=== PATIENT | female | born 1995 | race Caucasian/White ===

== ENCOUNTER 2019-03-17 07:16 | Inpatient (IN) | payer BC, OTHER ==
[~2019-03-17] VITALS: Ht 167.7 cm; Wt 69.5 kg
[2019-03-18] VITALS (19 sets, daily range): BP systolic 89–133; BP diastolic 62–85; PULSE 55–114; TEMP 97.6–99
--- NOTE | 2019-03-18 10:15 | NUR ---
Presents to labor and delivery for scheduled section. Assessment done, questions offered and answered. [facility]co anesthesia here, visits with patient. iv start left hand, fluids of lactated ringers started as ordered.
[2019-03-18] MEDS ORDERED: PRENATAL (10:38)
[2019-03-18 11:05] LABS: BASO % 0.3 % (0.0-2.0); EOS # 0.1 (0.0-0.7); EOS % 0.7 % (0-4.0); GRAN # 6.3 (1.4-6.5); GRAN % 72.2 % (42.2-75.2); HEMATOCRIT 34.3 % (37.0-47.0); LYMPH # 1.6 (1.2-3.4); LYMPH % 18.2 % (20.0-51.0); MEAN CELL VOLUME 90 fl (80.0-100.0); MEAN CORPUSCULAR HEMOGLOBIN 31 pg (27.0-31.0); MEAN CORPUSCULAR HGB CONC 35 g/dl (33.0-37.0); MEAN PLATELET VOLUME 11.6 fl (7.4-10.4); MONO # 0.7 (0.1-0.6); PLATELET COUNT 177 K/mm3 (130-400); RED BLOOD COUNT 3.82 M/mm3 (4.10-5.30); REDCELL DISTRIBUTION WIDTH-CV 13.4 % (11.5-14.5)
--- NOTE | 2019-03-18 12:05 | NUR ---
heart monitor on patient while sitting up for spinal. heart rate 130s with accelerations noted.
--- NOTE | 2019-03-18 13:35 | NUR ---
States feeling a little light headed. Blood pressure at 89/83, head of bed down. Anesthesia notified. States to give a fluid bolus. Says if that does not work to give her some ephedrine. Fluid bolus given. B/p 115/71, pulse 69. States feeling better.
--- NOTE | 2019-03-18 13:45 | NUR ---
To room 209 from o.r. with this nurse and father of the baby pushing the bed. Patient alert, denies any needs at this time.
--- NOTE | 2019-03-18 14:30 | NUR ---
Rests in bed, alert. Visits with family. Denies any needs at this time.
--- NOTE | 2019-03-18 15:00 | NUR ---
Continues to visit with family. Denies any needs at this time.
--- NOTE | 2019-03-18 17:00 | NUR ---
Rests in bed, alert. Family at bedside. 1749 States having headache. Talked to Mayco white. States to give her some tylenol. If that does not work, call him.
--- NOTE | 2019-03-18 18:45 | NUR ---
Bedside report recieved. Resting in bed while holding at this time. Reports that her headache remains unchanged from previous reports to Jose Rafael Patterson R.N. Pt states that when she leans back with her eyes clothes she feels alright however if she sits forward or starts looking around she becomes dizzy and nauseated. Updated whiteboard and reviewed POC.
--- NOTE | 2019-03-18 19:00 | NUR ---
Mayco Baltazar CRNA informed that pt continues to have a headache that is relieved some when HOB is flat. Informed that pt reports nausea and dizziness with sitting forward and looking around room; pt to have a Motrin administered shortly. Mayco Baltazar CRNA informed this staff nurse to continue to monitor pt.
--- NOTE | 2019-03-18 21:00 | NUR ---
Mayco Baltazar CRNA to bedside at this time to discuss symptoms with patient. Options provided; pt verbally consented to blood patch at this time for a potential spinal headache. Written consent obtained. Jessica Gurrola R.N., OB Charge nurse, notified of procedure and to bedside. 2117 - VS obtained at this time. BP 117/74, HR 57, SATs 97%, Oral Temperature 98.7. Patient then positioned on right side per provider's instructions. See Jessica Gurrola's notes regarding pocedure. 2144 - Procedure complete at this time. Mayco Baltazar CRNA put pt's HOB in an upright position. Patient reports her headache is gone and she is feeling much better. Patient noted to have more pink color in her cheeks and is noted to be smiling. Patient HOB returned to a flat position. VS obtained; BP 112/70, HR 77, SATs 99%, Oral Temperature 98.1. Per Mayco Baltazar CRNA patient is to remains in a semi-flat position, unless up to the restroom or , for 3-4 hours. Mayco Baltazar CRNA also ordered for camargo catheter to remain in for approximately two hours following procedure, and Neurology checks to be done Q15 minutes x1hr, Q30 minutes x1hr and Q1hr x1hr.
--- NOTE | 2019-03-18 21:35 | NUR ---
Here to assist Urban Trujillo with blood patch. Pts rt antecubital preped with chlorhexadine, 20cc blood drawn from antecubital by this RN in sterile manner- handed off to T Delaney for blood patch injection.Pt tolerates well.
[2019-03-19 00:30] VITALS: BP 116/78; PULSE 88; TEMP 98.5
--- NOTE | 2019-03-19 00:30 | NUR ---
VS obtained at this time. Patient continues to report no further headaches. SCD's removed at this time. Ambulated well to restroom. Crane catheter dc'd per order; tolerated well. ABD binder put in place and clean gown on. New linens to bed. Ambulated well back to bed and placed in a prone position. Denied questions or concerns.
[2019-03-19 04:00] VITALS: BP 115/65; PULSE 57; TEMP 98
[2019-03-19 07:49] VITALS: BP 109/73; PULSE 59; TEMP 97.9
[2019-03-19 11:33] VITALS: BP 118/72; PULSE 63; TEMP 97.6
[2019-03-19] MEDS ORDERED: PERCOCET 325 MG1 TA2 PO (15:51)
[2019-03-19] MEDS ORDERED: IBU600 MG PO (15:51)
[2019-03-19] MEDS ORDERED: NEWMANS TOP (15:53)
[2019-03-19 15:58] VITALS: BP 95/64; PULSE 70; TEMP 97.9
[2019-03-19 19:30] VITALS: BP 118/71; PULSE 61; TEMP 97.7
--- NOTE | 2019-03-19 20:53 | NUR ---
SEE PREVIOUS ENTRY FOR NOTES AND VITALS FROM PROCEEDURE
[2019-03-20 07:35] VITALS: BP 106/64; PULSE 55; TEMP 97.7
[2019-03-20 16:15] VITALS: BP 115/76; PULSE 61; TEMP 98.4
[2019-03-20 19:50] VITALS: BP 112/67; PULSE 57; TEMP 97.8
[2019-03-21 07:45] VITALS: BP 113/83; PULSE 61; TEMP 97.9
== END 2019-03-21 13:10 | disposition home or self-care (01) | DRG 788 ==
LOC: LDR 03-18 07:15 → OB 03-18 10:08
PROVIDERS: ADMIT Obstetrics & Gynecology
PROC: 10D00Z1 Extraction of Products of Conception, Low, Open Approach (ICD-10-PCS; principal; 2019-03-18)
PROC: 3E0R3GC Introduction of Other Therapeutic Substance into Spinal Canal, Percutaneous Approach (ICD-10-PCS; 2019-03-18)
DX: O32.1XX0 Maternal care for breech presentation, not applicable or unspecified (principal); Z3A.39 39 weeks gestation of pregnancy; Z37.0 Single live birth; O69.81X0 Labor and delivery complicated by cord around neck, without compression, not applicable or unspecified; Z28.21 Immunization not carried out because of patient refusal; O26.893 Other specified pregnancy related conditions, third trimester; Z67.41 Type O blood, Rh negative; G97.1 Other reaction to spinal and lumbar puncture
CPT/HCPCS: J0690; J1885; J2270; J2370; J2405; J2590; J2791; J7120

== ENCOUNTER 2020-12-24 17:16 | Outpatient (CLI) | payer BC, OTHER ==
[~2020-12-24] VITALS: Ht 167.6 cm; Wt 65.9 kg
[~2020-12-24 17:16] MED LIST: IBU600 MG PO; NEWMANS TOP; PERCOCET 325 MG1 TA2 PO; PRENATAL
--- NOTE | 2020-12-24 17:20 | NUR ---
1720- 38.3, G2L1 patient arrives ambulatory to unit with c/o regular ctx since 1400. To room LDR5. Oriented to room. Changes into clean gown. 1726- This RN to bedside. EFM explained and placed. Patient reports normal movement, denies any LOF, or vaginal bleeding. Reports regular ctx. Assessment completed. VS obtained. 1730- SVE /3. Posterior and soft. 173- Dr. Quintanilla notified. See physician notification. 174- Phone call from Dr. Quintanilla. See physician notification. Plan of care reviewed with patient who verbalizes understanding. Resting with call light within reach.
[2020-12-24 17:40] VITALS: BP 122/83; PULSE 82; TEMP 99.3
--- NOTE | 2020-12-24 18:30 | NUR ---
DIONICIOE unchanged by Henry PAREDES. Pt off monitors to change clothes and discharge home per 's orders. 1844: Discharge instructions given to pt and significant other. Pt verbalized her understanding. Denies questions at this time. Pt ambulatory off unit and home with spouse.
[2020-12-24 18:32] VITALS: BP 109/73; PULSE 74
== END 2020-12-24 18:45 | disposition home or self-care (01) ==
LOC: LDRO 17:16 → LDR 17:20 → LDRO 18:45
DX: O60.03 Preterm labor without delivery, third trimester (principal); Z3A.38 38 weeks gestation of pregnancy
CPT/HCPCS: OP

== ENCOUNTER 2020-12-26 00:56 | Inpatient (IN) | payer BC ==
[~2020-12-26] VITALS: Ht 167.6 cm; Wt 65.9 kg
[2020-12-26] VITALS (40 sets, daily range): BP systolic 92–142; BP diastolic 47–84; PULSE 72–125; TEMP 97.7–99.1
--- NOTE | 2020-12-26 01:03 | NUR ---
PT ARRIVED TO UNIT VIA WHEELCHAIR WITH SPOUSE WITH COMPLAINTS OF CONTRACTIONS AND POSSIBLE SROM. PT ORIENTED TO ROOM, CHANGED INTO GOWN, VS OBTAINED, EFM X2 APPLIED, SVE PERFORMED.
[2020-12-26 02:03] LABS: BASO % 0.4 % (0.0-2.0); EOS % 0.4 % (0-4.0); GRAN % 80.2 % (42.2-75.2); HEMATOCRIT 31.9 % (37.0-47.0); HEMOGLOBIN 10.3 g/dl (12.5-16.0); LYMPH # 1.5 (1.2-3.4); LYMPH % 13.6 % (20.0-51.0); MEAN CELL VOLUME 86 fl (80.0-100.0); MEAN CORPUSCULAR HEMOGLOBIN 28 pg (27.0-31.0); MEAN CORPUSCULAR HGB CONC 32 g/dl (33.0-37.0); MEAN PLATELET VOLUME 11.2 fl (7.4-10.4); MONO # 0.6 (0.1-0.6); PLATELET COUNT 210 K/mm3 (130-400); RED BLOOD COUNT 3.72 M/mm3 (4.10-5.30); REDCELL DISTRIBUTION WIDTH-CV 13.5 % (11.5-14.5)
--- NOTE | 2020-12-26 02:40 | NUR ---
0203- PT SITTING UP AT BEDSIDE FOR EPIDURAL PLACEMENT. 0205- Zehra LYONS CRNA IN ROOM FOR EPIDRUAL PLACEMENT. 0215- TEST DOSE GIVEN BY LANA CRUZ. MATERNAL HR INCREASED FROM THE 80'S-120'S. Zehra LYONS CRNA, OUT OF ROOM TO GET A NEW TEST DOSE. 0223- 2ND TEST DOSE GIVEN BY LANA, AGAIN MATERNAL HR INCREASED FROM 90'S-120'S Zehra LYONS CRNA DISCUSSES NEED TO REPLACE EPIDURAL WITH PT, UNDERSTANDING VERBALIZED AND PT AGREES TO 2ND ATTEMPT. 0236- EPIDURAL REPLACED AND 3RD TEST DOSE GIVEN BY [employer]. PT TOLERATED WELL. MATERNAL HR REMAINS IN THE 90'S. 0240- PT REPOSITIONED INTO SEMIFOWLER WITH RIGHT WEDGE.
--- NOTE | 2020-12-26 06:36 | NUR ---
0636- FHR tracing intermittently. RN to bedside. FHR audible in 60's. EFM adjusted. LR bolus. 0637- FHR decel resolves.
--- NOTE | 2020-12-26 08:04 | NUR ---
0804- Dr. Kelley at bedside and reviews plan of care with patient and family. AROM at this time by Dr. Kelley for moderate amount of clear fluid. SVE per provider /+1 and OP. Chana care, and pads changed. Left lateral with right leg in stirrups. Plan of care reviewed. Patient denies questions or needs at this time. Resting with call light within reach.
--- NOTE | 2020-12-26 08:40 | NUR ---
0840- Dr. Kelley remains on unit. MD to bedside. SVE per provider 10cm. Nursery notified. Patient instructed on pushing. 0845- Patient begins to push with contractions with Dr. Kelley at bedside. Strong maternal effort noted. decent noted. Crane catheter removed. Patient positioned in stirrups for delivery. 0850- Spontaneous vaginal delivery of viable female infant. To mother's chest where dried and stimulated. Care of assumed by Zehra Modi RN. 0853- Spontaneous and intact delivery of placenta. Pitocin started at 333ml/hr per protocol. Right MLE with 2nd degree laceration repaired by Dr. Kelley. 0908- Chana care provided, pads changed and ice to perineum. Fundus firm, midline, and bleeding minimal. Plan of care and safety precautions reviewed with patient and spouse who verbalize understanding. Resting with call light within reach. See doctor dictation, anesthesia record, and nurses notes.
--- NOTE | 2020-12-26 10:30 | NUR ---
Patient offered to be swabbed for COVID19. Patient declines.
--- NOTE | 2020-12-26 11:30 | NUR ---
1130- Fundus firm, midline, and bleeding minimal. Assited to sit on edge of bed. Denies dizziness or lightheadedness. Epidural catheter removed. Assisted to bathroom via wheelchair with assist x2. Patient states she does not feel like she needs to void. Patient reports lightheadedness and dizziness. Chana care provided, pads changed, and clean gown on. To room 208 via wheelchair. Assist x1 to bed. Patient reports dizziness/lightheadedness resolved. Oriented to room and plan of care. Denies any questions or needs at this time.
[2020-12-26] MEDS ORDERED: MOTRIN 800800 MG/TAB PO (21:57)
[2020-12-26] MEDS ORDERED: PERCOCET 325 MG1 TA2 PO (21:57)
[2020-12-27 07:50] VITALS: BP 103/68; PULSE 72; TEMP 97.5
--- NOTE | 2020-12-27 07:50 | NUR ---
Rests in bed, alert. Ibuprofen 800 mg given as ordered.
--- NOTE | 2020-12-27 09:42 | NUR ---
Initial visit; Family resting, Theater Education Teacher left card of congratulations for the of their daughter and information regarding the availability of [facility] at [facility].
== END 2020-12-27 13:30 | disposition home or self-care (01) | DRG 807 ==
LOC: LDRO 00:56 → LDR 01:50 → OB 11:30
PROVIDERS: ADMIT Obstetrics & Gynecology
PROC: 10D07Z6 Extraction of Products of Conception, Vacuum, Via Natural or Artificial Opening (ICD-10-PCS; principal; 2020-12-26)
PROC: 10907ZC Drainage of Amniotic Fluid, Therapeutic from Products of Conception, Via Natural or Artificial Opening (ICD-10-PCS; 2020-12-26)
PROC: 0W8NXZZ Division of Female Perineum, External Approach (ICD-10-PCS; 2020-12-26)
DX: O34.211 Maternal care for low transverse scar from previous cesarean delivery (principal); Z37.0 Single live birth; O99.02 Anemia complicating childbirth; O26.893 Other specified pregnancy related conditions, third trimester; D64.9 Anemia, unspecified; Z3A.38 38 weeks gestation of pregnancy; Z67.91 Unspecified blood type, Rh negative
CPT/HCPCS: J2590; J7120